=== PATIENT | female | born 1995 | race Caucasian/White ===

== ENCOUNTER → 2016-06-04 | Outpatient (CLI) | payer BC ==
[2016-06-04 11:08] LABS: CAMPYLOBACTER SPECIES Not Detected (Not Detect)
[2016-06-04 11:09] LABS: ADENOVIRUS F 40/41 Not Detected (Not Detect); ASTROVIRUS Not Detected (Not Detect); C DIFFICILE TOXIN A/B DETECTED (Not Detect); CRYPTOSPORIDIUM Not Detected (Not Detect); CYCLOSPORA CAYETANENSIS Not Detected (Not Detect); E. COLI (EPEC) Not Detected (Not Detect); E. COLI (ETEC) Not Detected (Not Detect); E. COLI (STEC) Not Detected (Not Detect); ENTAMOEBA HISTOLYTICA Not Detected (Not Detect); GIARDIA LAMBLIA Not Detected (Not Detect); NOROVIRUS GI/ GII Not Detected (Not Detect); PLESIOMONAS SPECIES Not Detected (Not Detect); ROTAVIRUS A Not Detected (Not Detect); SALMONELLA SPECIES Not Detected (Not Detect); SAPOVIRUS Not Detected (Not Detect); SHIGELLA AND EIEC Not Detected (Not Detect); VIBRIO SPECIES Not Detected (Not Detect); YERSINIA ENTEROCOLITICA Not Detected (Not Detect)
== END | disposition disaster alternative care site (69) ==
LOC: GLAB 08:47
PROVIDERS: Psychiatry & Neurology Neurology
DX: R19.7 Diarrhea, unspecified (principal)